=== PATIENT | female | born 1995 | race Caucasian/White ===

== ENCOUNTER 2016-04-11 20:06 | Emergency (ER) | payer OTHER ==
--- NOTE | 2016-04-11 22:32 | DIAGNOSTIC IMAGING REPORT ---
PROCEDURE: XR CERVICAL SPINE 2 OR 3 VIEW INDICATION: NECK TRAUMA/INJURY TECHNIQUE: Three views. COMPARISON: None. FINDINGS: Osseous structures and disc spaces are normal. No evidence of an acute process or fracture. IMPRESSION: 1. Negative cervical spine.
--- NOTE | 2016-04-11 22:33 | DIAGNOSTIC IMAGING REPORT ---
PROCEDURE: CT HEAD WITHOUT CONTRAST INDICATION: TRAUMA/INJURY TECHNIQUE: Noncontrast axial images with sagittal and coronal reformations. COMPARISON: None. FINDINGS: Brain and ventricles are normal. No evidence of an acute process or hemorrhage. Sinuses and mastoids are normal. IMPRESSION: 1. Negative head CT. 2. Findings emergent department for MACKENZIE Pascual. All CT scans at this facility use dose modulation, iterative reconstruction, and/or weight-based dosing when appropriate to reduce radiation dose to as low as reasonably achievable.
--- NOTE | 2016-04-11 22:55 | ED CLINICAL REPORT ---
Clinical Report - Physicians/Mid Levels [facility] [address] [place] [address] 04/11/2016 20:06 Patient: AUGUST COONEY Time Seen: 20:20; initial patient contact, initial documentation, patient care assumed. Arrived- By private vehicle. Historian- patient. HISTORY OF PRESENT ILLNESS Chief Complaint: FALL. Location of injuries- head, neck and upper back. The injury occurred today. Occurred at home. Fell down > 6 and several stairs while walking and landed on a carpeted surface; slipped (says she was coming down stairs, slipped or missed a step, fell down stairs, and awoke at bottom). The patient complains of mild pain. The patient sustained a blow to the head and complains of neck pain. The patient had brief loss of consciousness lasting seconds but remembers the accident and the trip to the hospital. Not dazed. No seizure. REVIEW OF SYSTEMS No numbness, loss of vision, chest pain, difficulty breathing or weakness. No headache, laceration or vomiting. She has no pain on weight bearing. All systems otherwise negative, except as recorded above. PAST HISTORY Negative. SOCIAL HISTORY Heavy tobacco smoker. Occasional alcohol use. Last drink was just prior to arrival. No recent travel. Is a local resident. FAMILY HISTORY No significant family medical history. ADDITIONAL NOTES The nursing notes have been reviewed with agreement regarding the chief complaint, HPI, ROS, PMH and patient medications and allergies. PHYSICAL EXAM Vital Signs: 04/11/2016 20:12 BP: 125/69. HR: 103. RR: 16. O2 saturation: 100%. Temp: 98.3 F. Pain level now: 5/10. Have been reviewed as normal and appear to be correct. Appearance: Alert. Oriented X3. No acute distress. Head: Head non-tender. No swelling of head. Forehead: small abrasion of the upper left side of the forehead (2cm linear abrasion (scratch), does not look acute). No erythema, tenderness, swelling, laceration or ecchymosis. No puncture wound, foreign body or deformity. Eyes: Pupils equal, round and reactive to light. EOM intact. ENT: No dental injury. Pharynx normal. Neck: Painless ROM. Non-tender. CVS: Heart sounds normal. Pulses normal. Respiratory: Breath sounds normal. Chest nontender. Abdomen: No visible injury. Soft and nontender. Back: No tenderness. ROM normal. Skin: Skin intact. Skin warm and dry. Normal skin color. Normal skin turgor. Extremities: Normal inspection. Pelvis stable. Extremities atraumatic. No lower extremity edema. Neuro: Oriented X 3. No motor deficit. No sensory deficit. LABS, X-RAYS, AND EKG X-Rays: C-spine series negative. C-Spine X-rays: (IMPRESSION: 1. Negative cervical spine. Electronically Final signed by:Sundeep Hardwick MD 04/11/2016 10:30:40 PM). The X-rays were interpreted by the radiologist and contemporaneously by me. CT Head: No acute disease. (IMPRESSION: 1. Negative head CT. 2. Findings emergent department for MACKENZIE Pascual. All CT scans at this facility use dose modulation, iterative reconstruction, and/or weight-based dosing when appropriate to reduce radiation dose to as low as reasonably achievable. Electronically Final signed by:Sundeep Hardwick MD 04/11/2016 10:32:29 PM). The study was interpreted by the radiologist. PROGRESS AND PROCEDURES Course of Care: pt declined offer for pain meds here. Patient counseled in person regarding the patient's stable condition, test results and diagnosis. 22:37. Differential Diagnosis: Other possible considerations: fall, abrasions, contusions, fx, sprains, head injury. Above considerations are based on history and physical exam. Differential diagnosis was discussed with patient. Disposition: Discharged home in good and unchanged condition (22:55). Condition: good and stable. CLINICAL IMPRESSION Fall on same level by slipping. Single superficial abrasion to the forehead. Acute cervical strain. INSTRUCTIONS Warnings: GENERAL WARNINGS: Return or contact your physician immediately if your condition worsens or changes unexpectedly, if not improving as expected, or if other problems arise. SPECIFICALLY, return if you develop numbness or incontinence of feces (loss of bowel control) or urine (loss of bladder control). Prescription Medications: Naproxen 500 mg tablets: take 1 orally every 12 hours as needed for pain. Dispense twenty (20). No refills. Flexeril 10 mg: Take 1 orally every 8 hours as needed for muscle spasm. Dispense twenty (20). No refills. Substitution is permissible. Follow-up: Follow up with your doctor in about one week even if well. Call for an appointment. Summary of care provided to patient. Understanding of the discharge instructions verbalized by patient. (Electronically signed by Sugey Robb A.R.NJens 04/11/2016 23:20)
--- NOTE | 2016-04-11 22:55 | ED NURSING NOTES ---
Clinical Report - Nurses [address] [place] [address] 04/11/2016 20:06 Patient: ROSA COONEY TRIAGE Triage time 20:Apr 11 2016. Acuity: LEVEL 3. Chief Complaint: FALL DOWN > 6 STAIRS, onto a carpeted surface; lost balance (lost balance on steps, landed on remaining steps on her back). 20:19 04/11/16. SEPSIS SCREEN: Sepsis Screen: negative. Negative (no infection suspected/documented). ANGEL LUIS COMA SCORE: [place] Coma Scale: 15- eyes open spontaneously (4); best verbal response- oriented x 4 (5); best motor response- obeys commands (6). --20:19 Justa York R.N. 20:12 04/11/16. BP: 125/69. HR: 103. RR: 16. O2 saturation: 100%. Temp: 98.3 F. Pain level now: 08/04. --20:19 Justa York R.N. BREATHALYZER: Breathalyzer (0.00). --21:00 Pilo Nguyen R.N. Weight: 72.5 kg. Height/Length: 62 inches. BMI: 29.3. --20:12 Justa York R.N. Medications None. --20:16 Justa York R.N. Medication/allergy information source: the patient. --20:19 Justa York R.N. Allergies Tramadol. --20:16 Justa York R.N. History Arrived by private vehicle. Historian: patient. Accompanied by family. Location of injuries: anterior neck and head. This occurred today (4 PM today). ( states lost balance on steps, slid and "woke up" at the bottom, but still on steps, was on her back. complains of head, neck and back pain). She has had neck pain. No loss of consciousness. No alteration in mental status, dizziness, extremity pain, trouble walking or limited ROM present. No difficulty breathing. No injury to the vertex. SOCIAL HX: Heavy tobacco smoker (cigarette)- 1 pack per day. Occasional alcohol use. (states drank alcohol following- 1 beer). No drug use. No infectious disease exposure. ABUSE ASSESSMENT: No report of abuse. SELF HARM ASSESSMENT: A self harm assessment was performed. The patient answered "no" to the question "Have you recently felt down, depressed, or hopeless?", "Have you noticed less interest or pleasure in doing things?", "Do you have thoughts of harming or killing yourself?", "Are you here because you tried to hurt yourself?", "Have you ever tried to hurt yourself before today?", "Have you recently had thoughts about harming or killing others?" and "Do you have any dangerous items in your possession?". --20:19 Justa York R.N. PROBLEMS: Scabies. --20:16 Justa York R.N. ADDITIONAL SURGERIES: no known surgeries. Interventions ID band on patient. --20:19 Justa York R.N. PHYSICAL ASSESSMENT 20:21 04/11/16. Ambulatory to room. GENERAL / NEURO / PSYCH: Alert. Oriented X 4. Angel Luis Coma Scale: 15- eyes open spontaneously (4); best verbal response- oriented x 4 (5); best motor response- obeys commands (6). No numbness. HEENT: Pupils equal, round and reactive to light. Head non-tender. No signs of head trauma. ( flat affect). RESPIRATORY: Respirations not labored. Chest nontender. Breath sounds within normal limits. No accessory muscle use or chest wall injury. CVS: Pulses within normal limits. GI / : Abdomen soft and nontender. No CVA tenderness. EXTREMITIES: Extremities exhibit normal ROM. Neuro-vascular status intact to the extremity. She was able to bear weight. No limping gait. SKIN: Skin intact. Skin is warm and dry. No skin breakdown noted. BACK: No back injury or soft tissue tenderness in the back. Vertebral point tenderness over the cervical spine and lumbar spine. --20:21 Justa York R.N. NURSING PROGRESS NOTES 20:19 04/11/16. The initial plan of care for this patient has been created This plan of care was discussed with the patient. Medium hard c-collar applied. Reassurance given to the patient. Patient identifiers checked. Side rails up x 2. Bed placed in lowest position. Brakes of bed on. Patient ready for evaluation. --20:19 Justa York R.N. 21:20 04/11/16. Patient transported to [place] by stretcher with tech. --21:31 Justa York R.N. 21:45 04/11/16. BP: 115/61. HR: 104. RR: 22. O2 saturation: 100%. Pain level now 5/10. --21:45 Justa York R.N. 22:45 04/11/16. ( RESIDENTIAL CHILD CARE COUNSELOR in to review test results with patient). --22:45 Justa York R.N. DISPOSITION / DISCHARGE Departure time: 2312. Condition at departure: stable. The goals identified in the patient's plan of care were met. No learning barriers present. Discharge instructions provided and reviewed with the patient. Reviewed medication(s) side effects, precautions, dosing and course information. Prescription(s) given to the patient (Rosa verbalizes importance of not driving and/or operating heavy machinery while taking muscle relaxers. She verbalizes safe, proper use of all prescribed pain meds for optimal pain management at home.). Activity restrictions (rest) reviewed. Patient verbalized understanding. Written instructions provided in Zambian. ( Rosa refused [facility] pamphlet for f/u and establish a PCP. She reports she has no transportation and her grandfather sleeps in til noon. She then stated she has the number and if she wants to get a PCP she will call herself. Rosa verbalizes understanding of all d/c instructions including need to f/u with PCP. She has no questions and voices no concerns at this time other than she doesn't want to go anywhere with her grandfather anymore.). The patient was discharged by the nurse practitioner. She was discharged home and accompanied by family. She left the Emergency Department ambulatory and via private vehicle. Family member driving. ANGEL LUIS COMA SCORE: Angel Luis Coma Scale: 15- eyes open spontaneously (4); best verbal response- oriented x 4 (5); best motor response- obeys commands (6). --23:54 Dylan Gunter R.N. 23:13 04/11/16. BP: 101/55 (regular adult cuff) taken on the left arm, via an automated monitor, while lying. HR: 95 (normal rate). RR: 14 (regular, unlabored and normal). O2 saturation: 99% on room air. Temp: 98.6 F (oral). Pain level now: 12/05. --23:54 Dylan Gunter R.N. Locked/Released at 04/11/2016 23:55 by Dylan Gunter R.N.
--- NOTE | 2016-04-11 22:55 | ED ORDER SUMMARY ---
..... Patient: AUGUST COONEY OrderSheet [facility] VisitID: [id number] [place] [address] 20y, F Registration Date/Time: 04/11/2016 ORDER SHEET Weight: 72.5 kg Allergies: Tramadol GENERAL ORDERS: Breathalyzer (20:53 04/11/2016 HBivens A.R.N.P.) (21:00 Alonso R.N.) CT Head wo Cont Urgent (21:16 04/11/2016 HBivens A.R.N.P.) (Ack 21:21 AMcQuoid ER Tech1) (21:36 RFay) Cervical Spine 2 or 3V Urgent (21:17 04/11/2016 HBivens A.R.N.P.) (Ack 21:21 AMcQuoid ER Tech1) (21:36 RFay) MEDICATION ORDERS: IV FLUIDS: ORDER SHEET NOTES: [Electronically signed by Sugey Robb.R.N.PCeasar (23:20 04/11/2016)] [Electronically signed by Dylan Gunter R.N. (23:55 04/11/2016)] [Electronically locked/signed by Dylan Gunter R.N. (23:55 04/11/2016)]
--- NOTE | 2016-04-11 22:55 | ED ORDER SUMMARY ---
..... Patient: AUGUST COONEY OrderSheet [facility] VisitID: [id number] [place] [address] 20y, F Registration Date/Time: 04/11/2016 ORDER SHEET Weight: 72.5 kg Allergies: Tramadol GENERAL ORDERS: Breathalyzer (20:53 04/11/2016 HBivens A.R.N.P.) (21:00 Alonso R.N.) CT Head wo Cont Urgent (21:16 04/11/2016 HBivens A.R.N.P.) (Ack 21:21 AMcQuoid ER Tech1) (21:36 RFay) Cervical Spine 2 or 3V Urgent (21:17 04/11/2016 HBivens A.R.N.P.) (Ack 21:21 AMcQuoid ER Tech1) (21:36 RFay) MEDICATION ORDERS: IV FLUIDS: ORDER SHEET NOTES: [Electronically signed by Sugey Robb.R.N.PCeasar (23:20 04/11/2016)] [Electronically signed by Dylan Gunter R.N. (23:55 04/11/2016)] [Electronically locked/signed by Dylan Gunter R.N. (23:55 04/11/2016)]
--- NOTE | 2016-04-11 22:55 | ED NURSING NOTES ---
Clinical Report - Nurses [address] [place] [address] 04/11/2016 20:06 Patient: ROSA COONEY TRIAGE Triage time 20:Apr 11 2016. Acuity: LEVEL 3. Chief Complaint: FALL DOWN > 6 STAIRS, onto a carpeted surface; lost balance (lost balance on steps, landed on remaining steps on her back). 20:19 04/11/16. SEPSIS SCREEN: Sepsis Screen: negative. Negative (no infection suspected/documented). ANGEL LUIS COMA SCORE: [place] Coma Scale: 15- eyes open spontaneously (4); best verbal response- oriented x 4 (5); best motor response- obeys commands (6). --20:19 Justa York R.N. 20:12 04/11/16. BP: 125/69. HR: 103. RR: 16. O2 saturation: 100%. Temp: 98.3 F. Pain level now: 08/04. --20:19 Justa York R.N. BREATHALYZER: Breathalyzer (0.00). --21:00 Pilo Nguyen R.N. Weight: 72.5 kg. Height/Length: 62 inches. BMI: 29.3. --20:12 Justa York R.N. Medications None. --20:16 Justa York R.N. Medication/allergy information source: the patient. --20:19 Justa York R.N. Allergies Tramadol. --20:16 Justa York R.N. History Arrived by private vehicle. Historian: patient. Accompanied by family. Location of injuries: anterior neck and head. This occurred today (4 PM today). ( states lost balance on steps, slid and "woke up" at the bottom, but still on steps, was on her back. complains of head, neck and back pain). She has had neck pain. No loss of consciousness. No alteration in mental status, dizziness, extremity pain, trouble walking or limited ROM present. No difficulty breathing. No injury to the vertex. SOCIAL HX: Heavy tobacco smoker (cigarette)- 1 pack per day. Occasional alcohol use. (states drank alcohol following- 1 beer). No drug use. No infectious disease exposure. ABUSE ASSESSMENT: No report of abuse. SELF HARM ASSESSMENT: A self harm assessment was performed. The patient answered "no" to the question "Have you recently felt down, depressed, or hopeless?", "Have you noticed less interest or pleasure in doing things?", "Do you have thoughts of harming or killing yourself?", "Are you here because you tried to hurt yourself?", "Have you ever tried to hurt yourself before today?", "Have you recently had thoughts about harming or killing others?" and "Do you have any dangerous items in your possession?". --20:19 Justa York R.N. PROBLEMS: Scabies. --20:16 Justa York R.N. ADDITIONAL SURGERIES: no known surgeries. Interventions ID band on patient. --20:19 Justa York R.N. PHYSICAL ASSESSMENT 20:21 04/11/16. Ambulatory to room. GENERAL / NEURO / PSYCH: Alert. Oriented X 4. Angel Luis Coma Scale: 15- eyes open spontaneously (4); best verbal response- oriented x 4 (5); best motor response- obeys commands (6). No numbness. HEENT: Pupils equal, round and reactive to light. Head non-tender. No signs of head trauma. ( flat affect). RESPIRATORY: Respirations not labored. Chest nontender. Breath sounds within normal limits. No accessory muscle use or chest wall injury. CVS: Pulses within normal limits. GI / : Abdomen soft and nontender. No CVA tenderness. EXTREMITIES: Extremities exhibit normal ROM. Neuro-vascular status intact to the extremity. She was able to bear weight. No limping gait. SKIN: Skin intact. Skin is warm and dry. No skin breakdown noted. BACK: No back injury or soft tissue tenderness in the back. Vertebral point tenderness over the cervical spine and lumbar spine. --20:21 Justa York R.N. NURSING PROGRESS NOTES 20:19 04/11/16. The initial plan of care for this patient has been created This plan of care was discussed with the patient. Medium hard c-collar applied. Reassurance given to the patient. Patient identifiers checked. Side rails up x 2. Bed placed in lowest position. Brakes of bed on. Patient ready for evaluation. --20:19 Justa York R.N. 21:20 04/11/16. Patient transported to [place] by stretcher with tech. --21:31 Justa York R.N. 21:45 04/11/16. BP: 115/61. HR: 104. RR: 22. O2 saturation: 100%. Pain level now 5/10. --21:45 Justa York R.N. 22:45 04/11/16. ( [employer] LABORER/DESIGNER in to review test results with patient). --22:45 Justa York R.N. DISPOSITION / DISCHARGE Departure time: 2312. Condition at departure: stable. The goals identified in the patient's plan of care were met. No learning barriers present. Discharge instructions provided and reviewed with the patient. Reviewed medication(s) side effects, precautions, dosing and course information. Prescription(s) given to the patient (Rosa verbalizes importance of not driving and/or operating heavy machinery while taking muscle relaxers. She verbalizes safe, proper use of all prescribed pain meds for optimal pain management at home.). Activity restrictions (rest) reviewed. Patient verbalized understanding. Written instructions provided in Faroese. ( oRsa refused [facility] pamphlet for f/u and establish a PCP. She reports she has no transportation and her grandfather sleeps in til noon. She then stated she has the number and if she wants to get a PCP she will call herself. Rosa verbalizes understanding of all d/c instructions including need to f/u with PCP. She has no questions and voices no concerns at this time other than she doesn't want to go anywhere with her grandfather anymore.). The patient was discharged by the nurse practitioner. She was discharged home and accompanied by family. She left the Emergency Department ambulatory and via private vehicle. Family member driving. ANGEL LUIS COMA SCORE: Angel Luis Coma Scale: 15- eyes open spontaneously (4); best verbal response- oriented x 4 (5); best motor response- obeys commands (6). --23:54 Dylan Gunter R.N. 23:13 04/11/16. BP: 101/55 (regular adult cuff) taken on the left arm, via an automated monitor, while lying. HR: 95 (normal rate). RR: 14 (regular, unlabored and normal). O2 saturation: 99% on room air. Temp: 98.6 F (oral). Pain level now: 12/05. --23:54 Dylan Gunter R.N. Locked/Released at 04/11/2016 23:55 by Dylan Gunter R.N.
--- NOTE | 2016-04-11 23:55 | ED DISCHARGE INSTRUCTIONS ---
Patient: AUGUST COONEY General Instructions [facility] VisitID: [id number] [place] [address] 20y, F Registration Date/Time: 04/11/2016 Fall on same level by slipping. Single superficial abrasion to the forehead. Acute cervical strain. INSTRUCTIONS Warnings: GENERAL WARNINGS: Return or contact your physician immediately if your condition worsens or changes unexpectedly, if not improving as expected, or if other problems arise. SPECIFICALLY, return if you develop numbness or incontinence of feces (loss of bowel control) or urine (loss of bladder control). Prescription Medications: Naproxen 500 mg tablets: take 1 orally every 12 hours as needed for pain. Dispense twenty (20). No refills. Flexeril 10 mg: Take 1 orally every 8 hours as needed for muscle spasm. Dispense twenty (20). No refills. Substitution is permissible. Follow-up: Follow up with your doctor in about one week even if well. Call for an appointment. Summary of care provided to patient. Understanding of the discharge instructions verbalized by patient. ADDITIONAL INFORMATION Mechanical Fall You have had a fall today. It appears that the cause is mechanical. That means that you slipped, tripped or lost your balance. If your fall had been due to fainting or a seizure, further tests would be required. Home Care: Rest today and resume your normal activities when you are feeling back to normal. If you were injured during the fall, follow the advice from your doctor regarding care of your injury. You may use acetaminophen (Tylenol) or ibuprofen (Motrin, Advil) to control pain, unless another pain medicine was prescribed. [NOTE: If you have chronic liver or kidney disease or ever had a stomach ulcer or GI bleeding, talk with your doctor before using these medicines.] Fall Prevention: Was there anything that caused your fall that can be fixed, removed, or replaced? Make your home safe by keeping walkways clear of objects you may trip over. Use non-slip pads under rugs. Do not walk in poorly lit areas. Do not stand on chairs or wobbly ladders. Use caution when reaching overhead or looking upward. This position can cause a loss of balance. Be sure your shoes fit properly, have non-slip bottoms and are in good condition. Be cautious when going up and down curbs, and walking on uneven sidewalks. If your balance is poor, consider using a cane or walker. Stay as active as you can. Balance, flexibility, strength, and endurance all come from exercise. They all play a role in preventing falls. Follow Up with your doctor or as advised by our staff. Get Prompt Medical Attention if any of the following occur: Repeated mechanical falls, or unexplained falls Dizziness, fainting or seizure Severe headache Chest pain or shortness of breath Palpitations (very rapid or very slow or irregular heartbeat) Blood in vomit, stools (black or red color) Weakness of an arm or leg or one side of the face Difficulty with speech or vision Abrasions Abrasions are skin scrapes. Their treatment depends on how large and deep the abrasion is. Home Care: If you were given a bandage, change it once a day. If your bandage sticks to the wound, soak it in warm water until it loosens. Wash the area with soap and water to remove all the cream/ointment. You may do this in a sink, under a tub faucet or shower. Rinse off the soap and pat dry with a clean towel. Reapply cream/ointment according to your doctor's instructions. This will prevent infection and help prevent the bandage from sticking. Cover the wound with a fresh non-stick bandage (Telfa). Repeat steps 1 to 4 daily, or as directed by your doctor. If the bandage becomes wet or dirty, change it as soon as possible. You may use acetaminophen (Tylenol) or ibuprofen (Motrin, Advil) to control pain, unless another pain medicine was prescribed. [ NOTE : If you have chronic liver or kidney disease or ever had a stomach ulcer or GI bleeding, talk with your doctor before using these medicines.] Do not use ibuprofen in children under six months of age. Follow Up with your physician or this facility as directed by our staff. Most skin wounds heal within ten days. However, an infection may occur despite proper treatment. Therefore, look for the early signs of infection listed below. Get Prompt Medical Attention if any of the following occur: Increasing pain in the wound Increasing redness or swelling Pus coming from the wound Fever of 100.4F (38C) or higher, or as directed by your healthcare provider Neck Sprain Or Strain A sudden force that causes turning or bending of the neck (such as in a car accident) can stretch or tear muscles (strain) and ligaments (sprain) and cause neck pain. Sometimes neck pain occurs after a simple awkward movement. In either case, muscle spasm is commonly present and contributes to the pain. Unless you had a forceful physical injury (for example, a car accident or fall), X-rays are usually not ordered for the initial evaluation of neck pain. If pain continues and dose not respond to medical treatment, X-rays and other tests may be performed at a later time. Home care The following guidelines will help you care for your injury at home: You may feel more soreness and spasm the first few days after the injury. Reduce your activity level until symptoms begin to improve. When lying down, use a comfortable pillow that supports the head and keeps the spine in a neutral position. The position of the head should not be tilted forward or backward. Use ice packs (ice in a plastic bag, wrapped in a towel) to treat acute pain. Apply for 20 minutes every 24 hours during the first two days. Then, begin local heat (hot shower, hot bath or heating pad) andmassageto reduce muscle spasm. Some patients feel best alternating hot and cold treatments, or just staying with one method only. Do what feels the best to you and gives the most relief. You may use acetaminophen or ibuprofen to control pain, unless another pain medicine was prescribed.If you have chronic liver or kidney disease or ever had a stomach ulcer or GI bleeding, talk with your doctor before using these medicines. Follow-up care Follow up with your physician or this facility if your symptoms do not show signs of improvement. Physical therapy may be needed. If you had X-rays today, they didnt show any broken bones, breaks, or fractures. Sometimes fractures dont show up on the first X-ray. Bruises and sprains can sometimes hurt as much as a fracture. These injuries can take time to heal completely. If your symptoms dont improve or they get worse, talk with your doctor. You may need a repeat X-ray. When to seek medical care Get prompt medical attention if any of the following occur: Pain becomes worse or spreads into your arms Weakness or numbness in one or both arms Neck Pain [No Trauma] There are several possible causes of neck pain without injury: You can get a minor ligament sprain or muscle strain from a sudden minor neck movement. Sleeping with your neck in an awkward position can also cause this. Some persons respond to emotional stress by tensing the muscles of their neck, shoulders and upper back. Chronic spasm in these muscles can cause neck pain and sometimes headaches. Gradualwear and tearof the joints in the spine can cause degenerative arthritis.This can be a source of occasional or chronic neck pain. With aging or repeated small injuries to the neck, the spinal disks (the cushions between each spinal bone) may bulge and put pressure on a nearby spinal nerve. This causes tingling, pain or numbness spreading from the neck to the shoulder, arm or hand on one side. Acute neck pain usually gets better in one to two weeks. Neck pain related to disk disease, arthritis in the spinal joints or spinal stenosis (narrowing of the spinal canal) can become chronic and last for months or years. Unless you had a forceful physical injury (for example, a car accident or fall), X-rays are usually not ordered for the initial evaluation of neck pain. If pain continues and does not respond to medical treatment, x-rays and other tests may be performed at a later time. Home Care: Rest and relax the muscles. Use a comfortable pillow that supports the head and keeps the spine in a neutral position. The position of the head should not be tilted forward or backward. A rolled up towel may help for a custom fit. Some persons find relief with heat (hot shower, hot bath or heating pad) and massage, while others prefer cold packs (crushed or cubed ice in a plastic bag, wrapped in a towel) . Try both and use the method that feels best for 20 minutes several times a day. You may use acetaminophen (Tylenol) or ibuprofen (Motrin, Advil) to control pain, unless another medicine was prescribed. [ NOTE : If you have chronic liver or kidney disease or ever had a stomach ulcer or GI bleeding, talk with your doctor before using these medicines.] Follow Up with your physician or this facility if your symptoms do not show signs of improvement after one week. Physical therapy or further tests may be needed. [NOTE: A radiologist will review any X-rays or CT scans that were taken. We will notify you of any new findings that may affect your care.] Get Prompt Medical Attention if any of the following occur: Pain becomes worse or spreads into one or both arms Weakness or numbness in one or both arms Increasing headache Neck swelling, difficulty or painful swallowing Fever of 100.4F (38C) or higher, or as directed by your healthcare provider Naproxen Sodium Oral tablet What is this medicine? NAPROXEN (na PROX en) is a non-steroidal anti-inflammatory drug (NSAID). It is used to reduce swelling and to treat pain. This medicine may be used for dental pain, headache, or painful monthly periods. It is also used for painful joint and muscular problems such as arthritis, tendinitis, bursitis, and gout. How should I use this medicine? Take this medicine by mouth with a glass of water. Follow the directions on the prescription label. Take it with food if your stomach gets upset. Try to not lie down for at least 10 minutes after you take it. Take your medicine at regular intervals. Do not take your medicine more often than directed. Long-term, continuous use may increase the risk of heart attack or stroke. A special MedGuide will be given to you by the pharmacist with each prescription and refill. Be sure to read this information carefully each time. Talk to your lasting room supervisor regarding the use of this medicine in children. Special care may be needed. What side effects may I notice from receiving this medicine? Side effects that you should report to your doctor or health health care consultant as soon as possible: black or bloody stools, blood in the urine or vomit blurred vision chest pain difficulty breathing or wheezing nausea or vomiting severe stomach pain skin rash, skin redness, blistering or peeling skin, hives, or itching slurred speech or weakness on one side of the body swelling of eyelids, throat, lips unexplained weight gain or swelling unusually weak or tired yellowing of eyes or skin Side effects that usually do not require medical attention (report to your doctor or health health care consultant if they continue or are bothersome): constipation headache heartburn What may interact with this medicine? alcohol aspirin cidofovir diuretics lithium methotrexate other drugs for inflammation like ketorolac or prednisone pemetrexed probenecid warfarin What if I miss a dose? If you miss a dose, take it as soon as you can. If it is almost time for your next dose, take only that dose. Do not take double or extra doses. Where should I keep my medicine? Keep out of the reach of children. Store at room temperature between 15 and 30 degrees C (59 and 86 degrees F). Keep container tightly closed. Throw away any unused medicine after the expiration date. What should I tell my health care provider before I take this medicine? They need to know if you have any of these conditions: asthma cigarette smoker drink more than 3 alcohol containing drinks a day heart disease or circulation problems such as heart failure or leg edema (fluid retention) high blood pressure kidney disease liver disease stomach bleeding or ulcers an unusual or allergic reaction to naproxen, aspirin, other NSAIDs, other medicines, foods, dyes, or preservatives or trying to get breast-feeding What should I watch for while using this medicine? Tell your doctor or health health care consultant if your pain does not get better. Talk to your doctor before taking another medicine for pain. Do not treat yourself. This medicine does not prevent heart attack or stroke. In fact, this medicine may increase the chance of a heart attack or stroke. The chance may increase with longer use of this medicine and in people who have heart disease. If you take aspirin to prevent heart attack or stroke, talk with your doctor or health health care consultant. Do not take other medicines that contain aspirin, ibuprofen, or naproxen with this medicine. Side effects such as stomach upset, nausea, or ulcers may be more likely to occur. Many medicines available without a prescription should not be taken with this medicine. This medicine can cause ulcers and bleeding in the stomach and intestines at any time during treatment. Do not smoke cigarettes or drink alcohol. These increase irritation to your stomach and can make it more susceptible to damage from this medicine. Ulcers and bleeding can happen without warning symptoms and can cause . You may get drowsy or dizzy. Do not drive, use machinery, or do anything that needs mental alertness until you know how this medicine affects you. Do not stand or sit up quickly, especially if you are an older patient. This reduces the risk of dizzy or fainting spells. This medicine can cause you to bleed more easily. Try to avoid damage to your teeth and gums when you brush or floss your teeth. Cyclobenzaprine Hydrochloride Oral tablet What is this medicine? CYCLOBENZAPRINE (doni lala) is a muscle relaxer. It is used to treat muscle pain, spasms, and stiffness. How should I use this medicine? Take this medicine by mouth with a glass of water. Follow the directions on the prescription label. If this medicine upsets your stomach, take it with food or milk. Take your medicine at regular intervals. Do not take it more often than directed. Talk to your lasting room supervisor regarding the use of this medicine in children. Special care may be needed. What side effects may I notice from receiving this medicine? Side effects that you should report to your doctor or health health care consultant as soon as possible: allergic reactions like skin rash, itching or hives, swelling of the face, lips, or tongue chest pain fast heartbeat hallucinations seizures vomiting Side effects that usually do not require medical attention (report to your doctor or health health care consultant if they continue or are bothersome): headache What may interact with this medicine? Do not take this medicine with any of the following medications: cisapride droperidol flecainide grepafloxacin halofantrine levomethadyl MAOIs like Carbex, Eldepryl, Marplan, Nardil, and Parnate nilotinib pimozide probucol sertindole This medicine may also interact with the following medications: abarelix alcohol contrast dyes dolasetron guanethidine medicines for cancer medicines for depression, anxiety, or psychotic disturbances medicines to treat an irregular heartbeat medicines used for sleep or numbness during surgery or procedure methadone octreotide ondansetron palonosetron phenothiazines like chlorpromazine, mesoridazine, prochlorperazine, thioridazine some medicines for infection like alfuzosin, chloroquine, clarithromycin, levofloxacin, mefloquine, pentamidine, troleandomycin tramadol vardenafil What if I miss a dose? If you miss a dose, take it as soon as you can. If it is almost time for your next dose, take only that dose. Do not take double or extra doses. Where should I keep my medicine? Keep out of the reach of children. Store at room temperature between 15 and 30 degrees C (59 and 86 degrees F). Keep container tightly closed. Throw away any unused medicine after the expiration date. What should I tell my health care provider before I take this medicine? They need to know if you have any of these conditions: heart disease, irregular heartbeat, or previous heart attack liver disease thyroid problem an unusual or allergic reaction to cyclobenzaprine, tricyclic antidepressants, lactose, other medicines, foods, dyes, or preservatives or trying to get breast-feeding What should I watch for while using this medicine? Check with your doctor or health health care consultant if your condition does not improve within 1 to 3 weeks. You may get drowsy or dizzy when you first start taking the medicine or change doses. Do not drive, use machinery, or do anything that may be dangerous until you know how the medicine affects you. Stand or sit up slowly. Your mouth may get dry. Drinking water, chewing sugarless gum, or sucking on hard candy may help. You have been given the following additional information: Fall, Mechanical Abrasion Neck Sprain/Strain Neck Pain, No Trauma Naproxen Sodium Oral tablet Cyclobenzaprine Hydrochloride Oral tablet (Electronically signed by Sugey Robb A.R.N.P. 04/11/2016 23:20)
--- NOTE | 2016-04-11 23:56 | ED MED RECONCILIATION SUMMARY ---
Patient: AUGUST COONEY Medication Reconciliation Report [facility] VisitID: [id number] [address] [place] [address] 20y, F Registration Date/Time: 04/11/2016 Weight: 72.5 kg Height/Length: 62 in. BMI: 29.3 ALLERGIES: Tramadol The patient's Home Medications are listed below: NONE. The source(s) of the original Home Medication information: patient The following Medications were given to the patient in the Emergency Department: None. The following Medications were prescribed to the patient: Naproxen 500 mg tablets: take 1 orally every 12 hours as needed for pain. Dispense twenty (20). No refills. -- Sugey Robb A.R.N.P. Flexeril 10 mg: Take 1 orally every 8 hours as needed for muscle spasm. Dispense twenty (20). No refills. Substitution is permissible. -- Sugey Robb A.R.NCeasarP.
--- NOTE | 2016-04-11 23:56 | ED MAR SUMMARY ---
..... Medication Administration Record [facility] [address] [place], [place] [id number] Patient: AUGUST COONEY Visit ID: [id number] 20y, F Weight: 72.5 kg Height/Length: 62 in BMI: 29.3 ALLERGIES: Tramadol
--- NOTE | 2016-04-11 23:56 | ED MAR SUMMARY ---
..... Medication Administration Record [facility] [address] [place], [place] [id number] Patient: AUGUST COONEY Visit ID: [id number] 20y, F Weight: 72.5 kg Height/Length: 62 in BMI: 29.3 ALLERGIES: Tramadol
--- NOTE | 2016-04-11 23:56 | ED MED RECONCILIATION SUMMARY ---
Patient: AUGUST COONEY Medication Reconciliation Report [facility] VisitID: [id number] [address] [place] [address] 20y, F Registration Date/Time: 04/11/2016 Weight: 72.5 kg Height/Length: 62 in. BMI: 29.3 ALLERGIES: Tramadol The patient's Home Medications are listed below: NONE. The source(s) of the original Home Medication information: patient The following Medications were given to the patient in the Emergency Department: None. The following Medications were prescribed to the patient: Naproxen 500 mg tablets: take 1 orally every 12 hours as needed for pain. Dispense twenty (20). No refills. -- Sugey Robb A.R.N.P. Flexeril 10 mg: Take 1 orally every 8 hours as needed for muscle spasm. Dispense twenty (20). No refills. Substitution is permissible. -- Sugey Robb A.R.NCeasraP.
== END 2016-04-11 23:13 | disposition home or self-care (01) ==
LOC: ED SRH 20:06
DX: S00.81XA Abrasion of other part of head, initial encounter (principal); S16.1XXA Strain of muscle, fascia and tendon at neck level, initial encounter; W10.9XXA Fall (on) (from) unspecified stairs and steps, initial encounter; Y93.9 Activity, unspecified; Y92.009 Unspecified place in unspecified non-institutional (private) residence as the place of occurrence of the external cause; Y99.9 Unspecified external cause status; F17.210 Nicotine dependence, cigarettes, uncomplicated